=== PATIENT | male | born 1990 | race Caucasian/White ===

== ENCOUNTER 2016-11-11 18:19 | Emergency (ER) | payer MEDICAID, BC ==
[~2016-11-11] VITALS: Ht 185.4 cm; Wt 89.2 kg
[~2016-11-11 18:19] MED LIST: ARIP20 PO; CELE20TA PO; CITA20 PO; DIVA250T PO
[2016-11-11 18:28] VITALS: BP 149/103; PULSE 114; RESP 16; TEMP 99.6; O2SAT 99
[2016-11-11] MEDS ORDERED: DEPA500T3 PO (18:43)
[2016-11-11] MEDS ORDERED: CELE20TA PO (18:43)
--- NOTE | 2016-11-11 18:56 | PD ---
HPI Chief Complaint: Respiratory Symptoms Time Seen by Provider: 18:40 Travel History International Travel<30 days: No Contact w/Intl Traveler<30days: No Traveled to known affect area: No History of Present Illness HPI This 26-year-old male presents with complaint of some shortness of breath. He has quite a severe anxiety disorder. He also has a history of pneumothorax. He thought he was having a anxiety problem but was having trouble breathing and was concerned he might be having a pneumothorax. He is having some mild right- sided pain in the shoulder. His pneumothoraces occurred several years ago. PFSH Past Medical History Hx Anticoagulant Therapy: No Asthma: No Autoimmune Disease: No Blood Disorders: No Bipolar Disorder: Yes Anxiety: Yes Depression: Yes Heart Rhythm Problems: No Cancer: No Cardiovascular Problems: Yes (HTN) Chest Pain: No Congestive Heart Failure: No Cerebrovascular Accident: No Diabetes: No Diminished Hearing: No Endocrine: No Gastrointestinal Disorders: Yes Genitourinary: No Headaches: No Heparin Induced Thrombocytopen: No Hypertension: No Immune Disorder: No Implanted Vascular Access Dvce: No Musculoskeletal: No Neurologic: No Psychiatric: Yes Reproductive: No Respiratory: Yes (two spont pneumothorax in the past) Immunizations Current: No Migraines: No Seizures: No Past Surgical History Abdominal Surgery: No Cardiac Surgery: No Ear Surgery: No Endocrine Surgery: No Eye Surgery: No Genitourinary Surgery: No Gynecologic Surgery: No Neurologic Surgery: No Oral Surgery: Yes (ROOT CANAL) Thoracic Surgery: Yes (SPONT. PNUEMO IN 2007, BILATERAL CHEST TUBES ) Other Surgery: No (10/06 spontaneous pneumo right) Social History Alcohol Use: Yes (STATES HE USED TO DRINK A LOT DOES NOT DRINK NOW) Tobacco Use: Yes (1 PPD) Substance Use: No Allergies-Medications (Allergen,Severity, Reaction): Coded Allergies: No Known Allergies (Verified , 11/11/16) Reported Meds & Prescriptions Reported Meds & Active Scripts Active Reported Celexa (Citalopram Hydrobromide) 20 Mg Tab 20 Mg PO DAILY Depakote ER (Divalproex Sodium) 500 Mg Alexus 500 Mg PO DAILY Review of Systems General / Constitutional: No: Fever, Chills Eyes: No: Diploplia, Blurred Vision HENT: No: Headaches, Vertigo Cardiovascular: No: Chest Pain or Discomfort Respiratory: Positive: Shortness of Breath Gastrointestinal: No: Vomiting, Diarrhea Genitourinary: No: Urgency, Frequency Musculoskeletal: No: Myalgias Psychiatric: Positive: Anxiety, No: Disorder of Thought, Substance Abuse Hematologic/Lymphatic: No: Easy Bruising Physical Exam Narrative GENERAL: Well-developed male SKIN: Focused skin assessment warm/dry. HEAD: Atraumatic. Normocephalic. EYES: Pupils equal and round. No scleral icterus. No injection or drainage. ENT: No nasal bleeding or discharge. Mucous membranes pink and moist. NECK: Trachea midline. No JVD. CARDIOVASCULAR: Regular rate and rhythm. No murmur appreciated. RESPIRATORY: No accessory muscle use. Clear to auscultation. Breath sounds equal bilaterally. GASTROINTESTINAL: Abdomen soft, non-tender, nondistended. Hepatic and splenic margins not palpable. MUSCULOSKELETAL: No obvious deformities. No clubbing. No cyanosis. No edema. NEUROLOGICAL: Awake and alert. No obvious cranial nerve deficits. Motor grossly within normal limits. Normal speech. PSYCHIATRIC: Appropriate mood and affect; insight and judgment normal. Data Data Last Documented VS Vital Signs Date Time Temp Pulse Resp B/P Pulse Ox O2 Delivery O2 Flow Rate FiO2 11/11/16 18:28 99.6 114 16 149/103 99 Orders Chest, Pa & Lat (11/11/16 18:50) [facility] Medical Decision Making Medical Screen Exam Complete: Yes Emergency Medical Condition: Yes Medical Record Reviewed: Yes Differential Diagnosis Differential includes atypical chest pain, pneumothorax, anxiety Narrative Course X-ray of the chest is negative for pneumothorax. Patient has been reevaluated and says his breathing is fine. He had some paresthesias in his right arm which have resolved. He is stable for discharge Diagnosis Primary Impression: Anxiety Disposition: 01 DISCHARGE HOME Condition: Stable William Pike MD November 11, 2016 18:56
[2016-11-11 19:15] VITALS: BP 153/92; PULSE 110; RESP 18; O2SAT 97
--- NOTE | 2016-11-11 19:20 | RADHPO ---
EXAM DATE/TIME: 11/11/2016 19:07 [facility] COMPARISON: CHEST PA & LAT, August 23, 2013, 19:32. INDICATIONS : Short of breath. MEDICAL HISTORY : None. Pneumothorax SURGICAL HISTORY : None. ENCOUNTER: Initial ACUITY: 1 day PAIN SCORE: 5/10 LOCATION: Bilateral chest FINDINGS: PA and lateral views of the chest demonstrate the lungs to be symmetrically aerated without evidence of mass, infiltrate or effusion. The cardiomediastinal contours are unremarkable. Osseous structure s are intact. CONCLUSION: No acute disease. Aram Robledo MD FACR on November 11, 2016 at 19:17 Board Certified Radiologist. This report was verified electronically.
[2016-11-11 20:29] VITALS: BP 140/88
--- NOTE | 2016-11-12 15:29 | EKG ---
Date Performed: 11/11/2016 Time Performed: 18:33:54 PTAGE: 26 years EKG: Sinus tachycardia. Poor R wave progression - probable normal variant Borderline ECG PREVIOUS TRACING : 05/29/2015 01.16 Compared to previous tracing, sinus rate is higher. DOCTOR: Hermelindo Marcum Interpretating Date/Time 11/12/2016 15:28:24
== END 2016-11-11 20:29 | disposition home or self-care (01) ==
LOC: PHED 18:19
DX: F41.9 Anxiety disorder, unspecified (principal); M25.511 Pain in right shoulder; R00.0 Tachycardia, unspecified; F17.200 Nicotine dependence, unspecified, uncomplicated; Z86.59 Personal history of other mental and behavioral disorders; Z87.09 Personal history of other diseases of the respiratory system; Z86.79 Personal history of other diseases of the circulatory system; Z87.19 Personal history of other diseases of the digestive system
CPT/HCPCS: 71020; 93005; 99283

== ENCOUNTER 2017-10-31 07:27 | Inpatient (IN) | payer BC, MEDICAID, OTHER ==
[2017-10-31] VITALS (11 sets, daily range): BP systolic 157–179; BP diastolic 95–122; PULSE 102–135; RESP 16–21; TEMP 97.5–98.8; O2SAT 95–100
[~2017-10-31] VITALS: Ht 188 cm; Wt 86.1 kg
[~2017-10-31 07:27] MED LIST changes: -ARIP20 PO; -CITA20 PO; +DEPA500T3 PO; -DIVA250T PO
[2017-10-31] MEDS ORDERED: SODIUM CHLOR 0.9% 1000 ML INJ 1,000 ML IV ONE ×2 (07:57→12:15)
[2017-10-31] MEDS ORDERED: SODIUM CHLORIDE 0.9% FLUSH 10 ML FLUSH IVF PRN (08:00)
--- NOTE | 2017-10-31 08:12 | PD ---
HPI Chief Complaint: OD/ Ingestion Time Seen by Provider: 07:46 Travel History International Travel<30 days: No Contact w/Intl Traveler<30days: No Traveled to known affect area: No History of Present Illness HPI The patient is a 27-year-old male who presents to the emergency department with his parents after an overdose. The father found the patient on the foyer earlier today, appeared to have slipped out of the chair. They noted the patient appeared to have overdosed on medications. They did find several medications that the patient possibly took including a whole bottle of Benadryl , several Klonopin, and possibly up to 85 pseudoephedrine 30 mg tablets. They state that the patient had slurred speech, was slightly drowsy. The patient does have a history of severe anxiety and depression, was scheduled to go to a treatment center earlier today. Upon arrival the patient is unable to tell me if the overdose was intentional or if there is any suicidal ideation. He does have a history of psychiatric disorders. The family states the patient has been doing well lately, has been more interactive, and was scheduled to undergo placement later today. They did call the facility in [place], [place], who stated the take the patient to the emergency department for possible medical clearance of the possible transfer to their facility later today. The family denies any alcohol use or illicit drug use. The patient denies any physical complaints, however, is a somewhat limited historian. PFSH Past Medical History Hx Anticoagulant Therapy: No Asthma: No Autoimmune Disease: No Blood Disorders: No Bipolar Disorder: Yes Anxiety: Yes Depression: Yes Heart Rhythm Problems: No Cancer: No Cardiovascular Problems: Yes (HTN) Chest Pain: No Congestive Heart Failure: No Cerebrovascular Accident: No Diabetes: No Diminished Hearing: No Endocrine: No Gastrointestinal Disorders: Yes Genitourinary: No Headaches: No Heparin Induced Thrombocytopen: No Hypertension: No Immune Disorder: No Implanted Vascular Access Dvce: No Musculoskeletal: No Neurologic: No Psychiatric: Yes Reproductive: No Respiratory: Yes (two spont pneumothorax in the past) Immunizations Current: No Migraines: No Seizures: No Past Surgical History Abdominal Surgery: No Cardiac Surgery: No Ear Surgery: No Endocrine Surgery: No Eye Surgery: No Genitourinary Surgery: No Gynecologic Surgery: No Neurologic Surgery: No Oral Surgery: Yes (ROOT CANAL) Thoracic Surgery: Yes (SPONT. PNUEMO IN 2007, BILATERAL CHEST TUBES ) Social History Alcohol Use: Yes (STATES HE USED TO DRINK A LOT DOES NOT DRINK NOW) Tobacco Use: Yes (1 PPD) Substance Use: No Allergies-Medications (Allergen,Severity, Reaction): Coded Allergies: No Known Allergies (Verified , 11/11/16) Reported Meds & Prescriptions Reported Meds & Active Scripts Active Reported Clonazepam 0.5 Mg Tab 0.5 Mg PO BID Temazepam 15 Mg Cap 15 Mg PO HS PRN Quetiapine (Quetiapine Fumarate) 25 Mg Tab 25 Mg PO HS Celexa (Citalopram Hydrobromide) 20 Mg Tab 20 Mg PO DAILY Depakote ER (Divalproex Sodium) 500 Mg Alexus 500 Mg PO DAILY Review of Systems ROS Limitations: Altered Mental Status, Poor Historian Except as stated in HPI: all other systems reviewed are Neg Psychiatric: Positive: Anxiety, Depression Physical Exam Narrative GENERAL: Awake, lethargic, 27-year-old male appears his stated age. SKIN: Focused skin assessment warm/dry. HEAD: Atraumatic. Normocephalic. EYES: Pupils equal and round. 3 mm bilateral and reactive. EOMs are intact. ENT: No nasal bleeding or discharge. Dry mucous membranes. NECK: Trachea midline. No JVD. CARDIOVASCULAR: Regular, tachycardic with a heart rate in the 130s. RESPIRATORY: No accessory muscle use. Clear to auscultation. Breath sounds equal bilaterally. GASTROINTESTINAL: Abdomen soft, non-tender, nondistended. No rebound tenderness. Back: No CVA tenderness. MUSCULOSKELETAL: No obvious deformities. No clubbing. No cyanosis. No edema. NEUROLOGICAL: Awake, lethargic. Slurred speech. Follows simple commands. Psychiatric: Unable to obtain. Data Data Last Documented VS Vital Signs Date Time Temp Pulse Resp B/P (MAP) Pulse Ox O2 Delivery O2 Flow Rate FiO2 10/31/17 08:00 135 20 100 Room Air 10/31/17 07:32 97.5 Orders Orders Electrocardiogram (10/31/17 07:57) Complete Blood Count With Diff (10/31/17 07:57) Comprehensive Metabolic Panel (10/31/17 07:57) Prothrombin Time / Inr (Pt) (10/31/17 07:57) Act Partial Throm Time (Ptt) (10/31/17 07:57) Urinalysis - C+S If Indicated (10/31/17 07:57) Chest, Single Ap (10/31/17 07:57) Iv Access Insert/Monitor (10/31/17 07:57) Ecg Monitoring (10/31/17 07:57) Oximetry (10/31/17 07:57) Sodium Chloride 0.9% Flush (Ns Flush) (10/31/17 08:00) Sodium Chlor 0.9% 1000 Ml Inj (Ns 1000 M (10/31/17 07:57) Call Poison Control (10/31/17 07:57) Drug Screen, Random Urine (10/31/17 07:57) Alcohol (Ethanol) (10/31/17 07:57) Salicylates (Aspirin) (10/31/17 07:57) Tylenol (Acetaminophen) (10/31/17 07:57) Labs Laboratory Tests Test 10/31/17 08:05 White Blood Count 10.1 TH/MM3 Red Blood Count 5.09 MIL/MM3 Hemoglobin 16.7 GM/DL Hematocrit 48.3 % Mean Corpuscular Volume 94.8 FL Mean Corpuscular Hemoglobin 32.8 PG Mean Corpuscular Hemoglobin Concent 34.7 % Red Cell Distribution Width 13.4 % Platelet Count 206 TH/MM3 Mean Platelet Volume 8.6 FL Neutrophils (%) (Auto) 75.5 % Lymphocytes (%) (Auto) 18.6 % Monocytes (%) (Auto) 5.3 % Eosinophils (%) (Auto) 0.3 % Basophils (%) (Auto) 0.3 % Neutrophils # (Auto) 7.6 TH/MM3 Lymphocytes # (Auto) 1.9 TH/MM3 Monocytes # (Auto) 0.5 TH/MM3 Eosinophils # (Auto) 0.0 TH/MM3 Basophils # (Auto) 0.0 TH/MM3 CBC Comment DIFF FINAL Differential Comment Prothrombin Time 10.7 SEC Prothromb Time International Ratio 1.1 RATIO Activated Partial Thromboplast Time 28.9 SEC Blood Urea Nitrogen 5 MG/DL Creatinine 1.05 MG/DL Random Glucose 95 MG/DL Total Protein 8.3 GM/DL Albumin 4.5 GM/DL Calcium Level 9.6 MG/DL Alkaline Phosphatase 68 U/L Aspartate Amino Transf (AST/SGOT) 71 U/L Alanine Aminotransferase (ALT/SGPT) 31 U/L Total Bilirubin 0.3 MG/DL Sodium Level 141 MEQ/L Potassium Level 3.9 MEQ/L Chloride Level 106 MEQ/L Carbon Dioxide Level 27.6 MEQ/L Anion Gap 7 MEQ/L Estimat Glomerular Filtration Rate 85 ML/MIN Salicylates Level 4.0 MG/DL Acetaminophen Level LESS THAN 2.0 MCG/ML Ethyl Alcohol Level LESS THAN 3 MG/DL MDM Medical Decision Making Medical Screen Exam Complete: Yes Emergency Medical Condition: Yes Medical Record Reviewed: Yes Interpretation(s) EKG reveals sinus tachycardia with a heart rate of 131. Last Impressions Chest X-Ray 10/31/17 0757 Signed Impressions: Service Date/Time: October 08:24 - CONCLUSION: No acute cardiopulmonary abnormality is identified. Chong Browne MD Laboratory Tests Test 10/31/17 08:05 White Blood Count 10.1 TH/MM3 Red Blood Count 5.09 MIL/MM3 Hemoglobin 16.7 GM/DL Hematocrit 48.3 % Mean Corpuscular Volume 94.8 FL Mean Corpuscular Hemoglobin 32.8 PG Mean Corpuscular Hemoglobin Concent 34.7 % Red Cell Distribution Width 13.4 % Platelet Count 206 TH/MM3 Mean Platelet Volume 8.6 FL Neutrophils (%) (Auto) 75.5 % Lymphocytes (%) (Auto) 18.6 % Monocytes (%) (Auto) 5.3 % Eosinophils (%) (Auto) 0.3 % Basophils (%) (Auto) 0.3 % Neutrophils # (Auto) 7.6 TH/MM3 Lymphocytes # (Auto) 1.9 TH/MM3 Monocytes # (Auto) 0.5 TH/MM3 Eosinophils # (Auto) 0.0 TH/MM3 Basophils # (Auto) 0.0 TH/MM3 CBC Comment DIFF FINAL Differential Comment Prothrombin Time 10.7 SEC Prothromb Time International Ratio 1.1 RATIO Activated Partial Thromboplast Time 28.9 SEC Blood Urea Nitrogen 5 MG/DL Creatinine 1.05 MG/DL Random Glucose 95 MG/DL Total Protein 8.3 GM/DL Albumin 4.5 GM/DL Calcium Level 9.6 MG/DL Alkaline Phosphatase 68 U/L Aspartate Amino Transf (AST/SGOT) 71 U/L Alanine Aminotransferase (ALT/SGPT) 31 U/L Total Bilirubin 0.3 MG/DL Sodium Level 141 MEQ/L Potassium Level 3.9 MEQ/L Chloride Level 106 MEQ/L Carbon Dioxide Level 27.6 MEQ/L Anion Gap 7 MEQ/L Estimat Glomerular Filtration Rate 85 ML/MIN Salicylates Level 4.0 MG/DL Acetaminophen Level LESS THAN 2.0 MCG/ML Ethyl Alcohol Level LESS THAN 3 MG/DL Differential Diagnosis Differential diagnosis includes intentional drug overdose, accidental drug overdose, sympathomimetic crisis, anticholinergic overdose, dehydration, arrhythmia, electrolyte abnormality. Narrative Course IV was established, labs are drawn and sent, and the patient was placed on cardiac telemetry monitoring and continuous pulse oximetry monitoring. EKG was ordered and interpreted. Acetaminophen level, salicylate level, alcohol level, drug level screen were sent to lab. Poison control was contacted. The patient was administered 1 L of IV fluids. The patient's salicylate level and acetaminophen levels are unremarkable. Electrolytes are unremarkable. The patient was reevaluated at 9:30 AM, still somewhat lethargic, still slurring words, and is still tachycardic with a heart rate of 07/15/2000 20. The patient was placed under a Robbins act. The patient will need observation in the intensive care unit when medically cleared evaluation by psychiatry. The on- call explosive specialist was paged for admission. Physician Communication Physician Communication The on-call explosive specialist was paged for admission. Diagnosis Primary Impression: Drug overdose, intentional Qualified Codes: T50.902A - Poisoning by unspecified drugs, medicaments and biological substances, intentional self-harm, initial encounter Condition: Stable Tony Sierra MD October 31, 2017 08:12
[2017-10-31 08:15] LABS: AUTOMATED NEUTROPHIL # 7.6 TH/MM3 (1.8-7.7); BASOPHIL % 0.3 % (0.0-2.0); EOSINOPHIL % 0.3 % (0.0-4.0); HEMATOCRIT 48.3 % (39.0-51.0); HEMOGLOBIN 16.7 GM/DL (13.0-17.0); LYMPH % 18.6 % (9.0-44.0); LYMPHOCYTE # 1.9 TH/MM3 (1.0-4.8); MEAN CELL VOLUME 94.8 FL (80.0-100.0); MEAN CORPUSCULAR HEMOGLOBIN 32.8 PG (27.0-34.0); MEAN CORPUSCULAR HGB CONC 34.7 % (32.0-36.0); MEAN PLATELET VOLUME 8.6 FL (7.0-11.0); MONO % 5.3 % (0.0-8.0); MONOCYTE # 0.5 TH/MM3 (0-0.9); NEUT % 75.5 % (16.0-70.0); PLATELET COUNT 206 TH/MM3 (150-450); RED BLOOD COUNT 5.09 MIL/MM3 (4.50-5.90); RED CELL DISTRIBUTION WIDTH 13.4 % (11.6-17.2); WHITE BLOOD COUNT 10.1 TH/MM3 (4.0-11.0)
[2017-10-31 08:24] LABS: INTERNATIONAL NORMALIZED RATIO 1.1 RATIO; PROTHROMBIN TIME - PATIENT 10.7 SEC (9.8-11.6)
--- NOTE | 2017-10-31 08:56 | RADRPT ---
EXAM DATE/TIME: 10/31/2017 08:24 [facility] COMPARISON: CHEST SINGLE AP, May 29, 2015, 1:16. INDICATIONS : Unresponsive, evaluate lung status, possible overdose. MEDICAL HISTORY : None. SURGICAL HISTORY : None. ENCOUNTER: Initial ACUITY: 1 day PAIN SCORE: Non-responsive. LOCATION: Bilateral chest FINDINGS: Portable AP view of the chest demonstrates a normal-sized cardiac silhouette. No effusion, consolidat ion, or pneumothorax is visualized. The bones and soft tissues demonstrate no acute abnormality. EKG lines overlie the patient. CONCLUSION: No acute cardiopulmonary abnormality is identified. Chong Browne MD on October 31, 2017 at 8:43 Board Certified Radiologist. This report was verified electronically.
[2017-10-31 09:00] LABS: ALBUMIN 4.5 GM/DL (3.4-5.0); ALKALINE PHOSPHATASE 68 U/L (45-117); ALT (GPT) 31 U/L (12-78); AST (GOT) 71 U/L (15-37); BICARBONATE 27.6 MEQ/L (21.0-32.0); BLOOD UREA NITROGEN 5 MG/DL (7-18); CALCIUM 9.6 MG/DL (8.5-10.1); CHLORIDE 106 MEQ/L (98-107); CREATININE 1.05 MG/DL (0.60-1.30); GLOMERULAR FILTRATION RATE 85 ML/MIN (>89); GLUCOSE,RANDOM 95 MG/DL (74-106); SODIUM (NA) 141 MEQ/L (136-145); TOTAL BILIRUBIN ADULT 0.3 MG/DL (0.2-1.0); TOTAL PROTEIN 8.3 GM/DL (6.4-8.2)
[2017-10-31 09:01] LABS: ACETAMINOPHEN LESS THAN 2.0 MCG/ML (10.0-30.0)
[2017-10-31] MEDS ORDERED: CLON0.5T PO (09:13)
[2017-10-31] MEDS ORDERED: TEMA15CA PO (09:13)
[2017-10-31] MEDS ORDERED: QUET1TAB7 PO (09:13)
[2017-10-31] MEDS ORDERED: RESP: ALBUTEROL 2.5 MG/IPRATROPIUM 0.5 MG NEB (PRN) INH (10:45)
[2017-10-31] MEDS ORDERED: SENNOSIDES 8.6 MG TAB PO PRN (10:45)
[2017-10-31] MEDS ORDERED: CHLORHEXIDINE GLUCONATE 2 % 1 PACK (2 CLOTHS) TOP PRN (10:45)
[2017-10-31] MEDS ORDERED: LACTULOSE SYRUP 20 GM/30 ML CUP PO PRN (10:45)
[2017-10-31] MEDS ORDERED: BISACODYL 10 MG SUPP RECTAL PRN (10:45)
[2017-10-31] MEDS ORDERED: NURSING INFORMATION XX SCH (10:45)
[2017-10-31] MEDS ORDERED: MAGNESIUM HYDROXIDE SUSP 30 ML CUP PO PRN (10:45)
[2017-10-31] MEDS ORDERED: DILTIAZEM HCL 30 MG TAB PO SCH (12:15)
--- NOTE | 2017-10-31 12:50 | MH ---
cc: Suyapa Velázquez MD DATE OF ADMISSION: 10/31/2017 DATE OF : 1990 HISTORY OF PRESENT ILLNESS: The patient is a 27-year-old male with a history of psychiatric disorders including bipolar disorder, anxiety and depression, who presented to [facility] ED with his parents after an overdose. Most of the history was obtained from reviewing the medical records as the patient is a poor historian. Apparently, the patient's father found him on the floor earlier today, appeared to have slipped out of the chair. They found several medications that the patient possibly took including a whole bottle of Benadryl, several Klonopin and possibly up to 85 pseudoephedrine 30 mg tablets. Patient had slurred speech and was slightly drowsy. He was scheduled to undergo drug rehab facility placement in [place], [place]. According to the parents, he had 3 similar episodes in the past. The family denies any history of alcohol use or illicit drug use. On arrival to the ED, he was tachycardic with heart rate of 130s and hypertensive with systolic blood pressure 160s to 170s. Chest x-ray showed no evidence of any acute cardiopulmonary disease. PAST MEDICAL HISTORY: Significant for bipolar disorder, anxiety disorder, depression, history of spontaneous pneumothorax greater than 5 years ago. PAST SURGICAL HISTORY: Previous chest tube placements. SOCIAL HISTORY: Nondrinker. Smoker. No history of illicit drug use. ALLERGIES: NO KNOWN DRUG ALLERGIES REPORTED. MEDICATIONS: 1. Clonazepam. 2. Celexa. 3. Depakote. 4. Temazepam. FAMILY HISTORY: Noncontributing to present illness. REVIEW OF SYSTEMS: Review of systems limited as the patient is a poor historian. PHYSICAL EXAMINATION: GENERAL: A 27-year-old male lying in bed on room air oxygen in no acute distress. VITAL SIGNS: Afebrile with temperature 97.5, pulse of 107, respiratory rate of 18, blood pressure 179/95, saturation 95%. HEENT: Atraumatic, normocephalic. Pupils are equal, round, reactive to light and accommodation. Extraocular muscles intact. Conjunctivae pink, nonicteric sclerae. Oral mucosa within normal limits. NECK: Supple. No JVD, adenopathy or thyromegaly. Trachea in the midline. CARDIOVASCULAR EXAM: Tachycardic. Normal S1, S2. No murmurs, rubs or gallops noted. PULMONARY EXAM: Bilateral equal air entry. No rales or wheezing. ABDOMEN: Soft, nontender. No distention. Positive bowel sounds. EXTREMITIES: No cyanosis, clubbing or edema. NEUROLOGIC: No focal sensory deficit. LABORATORY DATA: Sodium 141, potassium 3.9, chloride 106, CO2 27, BUN 5, creatinine 1.0, glucose 95. AST 71, ALT 31, alkaline phosphatase 68. WBC 10.1, hemoglobin 16, hematocrit 48, platelet count 206. Tylenol level less than 2. Alcohol level less than 3. INR 1.1, PT 10.7, PTT 28.9. Chest X-ray: No acute disease. EKG: Sinus tachycardia. IMPRESSION: 1. Polysubstance abuse on pseudoephedrine, Klonopin and Benadryl. 2. History of bipolar disorder. 3. History of anxiety and depression. 4. Hypertension. RECOMMENDATIONS: 1. Monitor neuro status closely and avoid any sedatives. 2. We will consult Psychiatry Service and we will obtain a urine drug screen. 3. Oxygen p.r.n. to maintain sats above 92%. 4. Bronchodilators on a p.r.n. basis. 5. Monitor heart rate and blood pressure closely and maintain MAP greater than 65 mmHg. 6. He was given 1 liter of NS in the ED. We will give an additional 1 liter bolus followed by D5NS at 80-84 mL an hour. 7. Cardizem 60 mg q. 6 for heart rate and blood pressure control. 8. Monitor renal function, I's and O's and electrolyte replacement per protocol. IV fluids as stated above. 9. Speech therapy evaluation. Diet per Speech. 10. Monitor for signs of infection which include fever and WBC. Barahona-culture if spikes a fever. A chest x-ray in the ED showed no acute cardiopulmonary disease. 11. Sliding scale insulin if needed for glycemic control. 12. No indications for GI prophylaxis. 13. Deep venous thrombosis prophylaxis with SCDs and heparin subq. Addendum 1756: No active issues appears hemodynamically stable. WIll sign off and transfer care to [facility] MD DEJAH Jolly/KATHRYN , 12:23 PM , 12:49 PM GLADIS
--- NOTE | 2017-10-31 14:02 | PD.PSY.CON ---
Provisional Diagnosis Admission Date October 31, 2017 at 10:37 Thornton I. Bipolar disorder, most recent episode depressed, anxiety Thornton II. Deferred Thornton III. Anticholinergic delirium History of Present Illness Service Psychiatry Consult Requested By ER Reason for Consult Overdose Primary Care Physician No Primary Care Physician HPI The patient is a 27-year-old man, single, domiciled with parents in [place], unemployed, supported by [facility], with psychiatric history of bipolar disorder, polysubstance abuse, for previous psychiatric hospitalization, last hospitalization was 2 years ago in in [place], previous suicide attempts by overdosing, established outpatient care with Dr. Chavez, patient Seroquel 25 mg, citalopram 10 mg, Depakote 500 mg twice daily, temazepam 15 mg, no significant medical history, who presents to the emergency department with his parents after an overdose. The father found the patient on the foyer earlier today, appeared to have slipped out of the chair. They noted the patient appeared to have overdosed on medications. They did find several medications that the patient possibly took including a whole bottle of Benadryl, several Klonopin, and possibly up to 85 pseudoephedrine 30 mg tablets. They state that the patient had slurred speech, was slightly drowsy. The patient does have a history of severe anxiety and depression, was scheduled to go to a treatment center earlier today. Upon arrival the patient is unable to tell me if the overdose was intentional or if there is any suicidal ideation. Patient was consulted to psychiatry to address overdose. EMR was reviewed. Case discussed with Dr. Sierra. His mother Charo Wolfe was uses a collateral information. On psychiatric evaluation the patient is poorly cooperative, with a prominent incoherent and slurred speech, disorganized, very disoriented, unable to provide any meaningful information for the psychiatric assessment. He seems to be having active visual hallucinations and is internally preoccupied . his mother reports that she is not very clear if the patient overdose with suicidal intentions or with intentions to get high. She says that in the past he used to abuse amphetamines alcohol and marijuana, but he has been clean for about 1 year. He was not showing any symptoms of depression lately, no changes in mentation that could raise a suspicion on an overdose. The mother reports that suicidal attempt is highly probable since the patient has done this in the past. She says that the patient has been secluded, no going out of the house, with a lot of anxiety and probable depression for about a year now. He has been quite stable with current psychotropic regimen. She wishes that if patient is going to be admitted in psychiatry the patient is transferred to [facility] in [place]. Review of Systems Constitutional: DENIES: Diaphoretic episodes, Fatigue, Fever, Weight gain, Weight loss, Chills, Dizziness, Change in appetite, Night Sweats Endocrine: DENIES: Heat/cold intolerance, Polydipsia, Polyuria, Polyphagia Eyes: DENIES: Blurred vision, Diplopia, Eye inflammation, Eye pain, Vision loss , Photosensitivity, Double Vision Ears, nose, mouth, throat: DENIES: Tinnitus, Hearing loss, Vertigo, Nasal discharge, Oral lesions, Throat pain, Hoarseness, Ear Pain, Running Nose, Epistaxis, Sinus Pain, Toothache, Odynophagia Respiratory: DENIES: Apneas, Cough, Snoring, Wheezing, Hemoptysis, Sputum production, Shortness of breath Cardiovascular: DENIES: Chest pain, Palpitations, Syncope, Dyspnea on Exertion , PND, Lower Extremity Edema, Orthopnea, Claudication Gastrointestinal: DENIES: Abdominal pain, Black stools, Bloody stools, Constipation, Diarrhea, Nausea, Vomiting, Difficulty Swallowing, Anorexia Genitourinary: DENIES: Sexual dysfunction, Urinary frequency, Urinary incontinence, Urgency, Hematuria, Dysuria, Nocturia, Penile Discharge, Testicular Pain, Testicular Swelling Musculoskeletal: DENIES: Joint pain, Muscle aches, Stiffness, Joint Swelling, Back pain, Neck pain Integumentary: DENIES: Abnormal pigmentation, Nail changes, Pruritus, Rash Hematologic/lymphatic: DENIES: Bruising, Lymphadenopathy Immunologic/allergic: DENIES: Eczema, Urticaria Neurologic: DENIES: Abnormal gait, Headache, Localized weakness, Paresthesias, Seizures, Speech Problems, Tremor, Poor Balance Psychiatric: COMPLAINS OF: Anxiety, Confusion, Suicidal Ideation, DENIES: Mood changes, Depression, Hallucinations, Agitation, Homicidal Ideation, Delusions Past Family Social History Coded Allergies: No Known Allergies (Verified Allergy, Unknown, 10/31/17) Reported Medications Clonazepam (Clonazepam) 0.5 Mg Tab, 0.5 MG PO BID, TAB 0 Refills 10/31/17 Temazepam (Temazepam) 15 Mg Cap, 15 MG PO HS Y for INSOMNIA, CAP 0 Refills 10/31/17 Quetiapine (Quetiapine) 25 Mg Tab, 25 MG PO HS, TAB 0 Refills 10/31/17 Citalopram (Celexa) 20 Mg Tab, 20 MG PO DAILY for Control Depression, #30 TAB 0 Refills 11/11/16 Divalproex ER (Depakote ER) 500 Mg Alexus, 500 MG PO DAILY for Control Seizures, #30 TAB 0 Refills 11/11/16 Current Medications Medications (Trade) Dose Ordered Sig/Eliu Route Start Time Stop Time Status Last Admin (NS Flush) 2 ml UNSCH PRN IVF 10/31/17 08:00 (Pepcid Inj) 20 mg Q12HR IV PUSH 10/31/17 21:00 (Pepcid) 20 mg Q12HR PO 10/31/17 21:00 (Duoneb Neb) 1 ampule Q4HR NEB PRN INH 10/31/17 10:45 ([facility]) 1 [id number] XX 10/31/17 10:45 (Chlorhexidine 2% Cloth) 3 pack Taper DAILY@04 TOP 11/01/17 04:00 10/28/18 03:59 (Chlorhexidine 2% Cloth) 3 pack UNSCH PRN TOP 10/31/17 10:45 (Tamica-Colace) 1 tab BID PO 10/31/17 21:00 (Milk Of Magnesia Liq) 30 ml Q12H PRN PO 10/31/17 10:45 (Senokot) 17.2 mg Q12H PRN PO 10/31/17 10:45 (Dulcolax Supp) 10 mg DAILY PRN RECTAL 10/31/17 10:45 (Lactulose Liq) 30 ml DAILY PRN PO 10/31/17 10:45 Dextrose/Sodium Chloride 1,000 ml @ 84 mls/hr [id number] IV 10/31/17 10:45 (Heparin Inj) 5,000 units Q12HR SQ 10/31/17 21:00 (Cardizem) 30 mg Q6HR PO 10/31/17 12:15 Family Psych History His father is bipolar, grandmother bipolar Social History Patient was born and raised in [place], he lives in [place] with his parents, unemployed, single, supported by SSI, his highest level of education is 1 year of college Patient's Strengths (min. 2) Family support, outpatient psychiatric Physical Exam No tremors, no EPS, no psychomotor agitation or retardation, no stiffness Vital Signs Vital Signs Date Time Temp Pulse Resp B/P (MAP) Pulse Ox O2 Delivery O2 Flow Rate FiO2 10/31/17 13:38 10/31/17 11:28 107 18 95 Room Air 10/31/17 07:32 97.5 Lab Results Test 10/31/17 08:05 White Blood Count 10.1 TH/MM3 Red Blood Count 5.09 MIL/MM3 Hemoglobin 16.7 GM/DL Hematocrit 48.3 % Mean Corpuscular Volume 94.8 FL Mean Corpuscular Hemoglobin 32.8 PG Mean Corpuscular Hemoglobin Concent 34.7 % Red Cell Distribution Width 13.4 % Platelet Count 206 TH/MM3 Mean Platelet Volume 8.6 FL Neutrophils (%) (Auto) 75.5 % Lymphocytes (%) (Auto) 18.6 % Monocytes (%) (Auto) 5.3 % Eosinophils (%) (Auto) 0.3 % Basophils (%) (Auto) 0.3 % Neutrophils # (Auto) 7.6 TH/MM3 Lymphocytes # (Auto) 1.9 TH/MM3 Monocytes # (Auto) 0.5 TH/MM3 Eosinophils # (Auto) 0.0 TH/MM3 Basophils # (Auto) 0.0 TH/MM3 CBC Comment DIFF FINAL Differential Comment Prothrombin Time 10.7 SEC Prothromb Time International Ratio 1.1 RATIO Activated Partial Thromboplast Time 28.9 SEC Blood Urea Nitrogen 5 MG/DL Creatinine 1.05 MG/DL Random Glucose 95 MG/DL Total Protein 8.3 GM/DL Albumin 4.5 GM/DL Calcium Level 9.6 MG/DL Alkaline Phosphatase 68 U/L Aspartate Amino Transf (AST/SGOT) 71 U/L Alanine Aminotransferase (ALT/SGPT) 31 U/L Total Bilirubin 0.3 MG/DL Sodium Level 141 MEQ/L Potassium Level 3.9 MEQ/L Chloride Level 106 MEQ/L Carbon Dioxide Level 27.6 MEQ/L Anion Gap 7 MEQ/L Estimat Glomerular Filtration Rate 85 ML/MIN Salicylates Level 4.0 MG/DL Acetaminophen Level LESS THAN 2.0 MCG/ML Ethyl Alcohol Level LESS THAN 3 MG/DL Mental Status Examination Appearance: Appropriate, Disheveled Consciousness: Obtunded, Clouded Orientation: Person Motor Activity: Abnormal gait Speech: Incoherent Language: Perseveration Fund of Knowledge: Inadequate Memory: Impaired Mood: Irritable Affect: Irritable Thought Process & Associations: Loose associations Thought Content: Bizarre thinking Hallucination Type: None Suicidal Ideation: No Suicidal Plan: No Suicidal Intention: No Homicidal Ideation: No Homicidal Plan: No Homicidal Intention: No Insight: Poor Judgment: Poor Assessment & Plan Problem List: (1) Bipolar disorder ICD Codes: F31.9 - Bipolar disorder Status: Acute Assessment & Plan: At the moment of my psychiatric evaluation today the patient is quite confused, disorganized, completely disoriented, with incoherent speech after overdosing with multiple pills of Benadryl. Patient seems to be AMS due to anticholinergic delirium. There is a patient with an extensive history of bipolar disorder, substance dependence, poor impulse control, previous suicide attempt, he is engaged in outpatient care and is receiving psychotropics, but at this moment is quite unclear if recent overdose was with suicidal intentions. But, is very clear that the patient has an elevated risk of danger to self and is to be admitted in psychiatry for stabilization and safety. Hold psychotropics to the moment. Once patient is hemodynamically stable and out of danger, psychotropics can be restarted. loft worker intervention to present the patient to [facility] in [place] once patient is medically cleared to continue psychiatric treatment , as per mother wish. Patient must remain with a sitter in the medical floor. I will follow-up. Assessment & Plan Estimated LOS: Paramjit Ferrara MD October 31, 2017 14:02
[2017-10-31] MEDS: DEXT 5%-NACL 0.9% 1000 ML INJ 1,000 ML IV SCH ×2 (14:05→20:02)
[2017-10-31 14:51] LABS: BILIRUBIN, URINE NEG (NEG); BLOOD, URINE NEG (NEG); GLUCOSE,URINE NEG (NEG); KETONE, URINE NEG (NEG); MUCUS URINE FEW /lpf (OCC); NITRITE,URINE NEG (NEG); URINE COLOR YELLOW (YELLW/STRAW); URINE LEUKOCYTE ESTERASE NEG (NEG)
--- NOTE | 2017-10-31 15:39 | EKG ---
Date Performed: 10/31/2017 Time Performed: 07:56:55 PTAGE: 27 years EKG: SINUS TACHYCARDIA POSSIBLE INFERIOR MYOCARDIAL INFARCTION ABNORMAL RHYTHM ECG PREVIOUS TRACING : 11/11/2016 18.33 Possible right atrial enlargment. Since the prior tracing, there has been a worsening of the sinus tachycardia associated with possible right atrial enlargment. Findings are nonspecific, but causes of acute right atrial strain including pulmonary embolus should be excluded clinically. DOCTOR: Trisha Jimenez Interpretating Date/Time 10/31/2017 15:37:07
[2017-10-31] MEDS: DILTIAZEM HCL 30 MG TAB PO SCH ×2 (16:48→23:23)
[2017-10-31] MEDS: hydrALAZINE HCL 20 MG/ML VIAL IV PUSH PRN (16:49)
[2017-10-31] MEDS: FAMOTIDINE 20 MG/2 ML VIAL IV PUSH SCH (19:44)
[2017-10-31] MEDS: HEPARIN SODIUM - SQ 10,000 UNITS/ML VIAL SQ SCH (20:02)
[2017-10-31] MEDS: FAMOTIDINE 20 MG TAB PO SCH (20:02)
[2017-10-31] MEDS: DOCUSATE SODIUM 50 MG/SENNA 8.6 MG TAB PO SCH (20:02)
[2017-10-31] MEDS: CHLORHEXIDINE GLUCONATE 2 % 1 PACK (2 CLOTHS) TOP SCH (20:03)
[2017-11-01] VITALS (12 sets, daily range): BP systolic 135–170; BP diastolic 70–88; PULSE 68–114; RESP 8–23; TEMP 98.6–99.3; O2SAT 94–98
[2017-11-01] MEDS: DEXT 5%-NACL 0.9% 1000 ML INJ 1,000 ML IV SCH ×2 (01:30→13:04)
[2017-11-01] MEDS: hydrALAZINE HCL 20 MG/ML VIAL IV PUSH PRN (01:43)
[2017-11-01 04:01] LABS: AUTOMATED NEUTROPHIL # 6.4 TH/MM3 (1.8-7.7); BASOPHIL % 0.2 % (0.0-2.0); EOSINOPHIL # 0.2 TH/MM3 (0-0.4); EOSINOPHIL % 1.6 % (0.0-4.0); HEMOGLOBIN 14.7 GM/DL (13.0-17.0); LYMPH % 29.8 % (9.0-44.0); LYMPHOCYTE # 3.3 TH/MM3 (1.0-4.8); MEAN CELL VOLUME 96.2 FL (80.0-100.0); MEAN CORPUSCULAR HEMOGLOBIN 32.8 PG (27.0-34.0); MEAN CORPUSCULAR HGB CONC 34.1 % (32.0-36.0); MEAN PLATELET VOLUME 8.8 FL (7.0-11.0); MONO % 10.3 % (0.0-8.0); MONOCYTE # 1.1 TH/MM3 (0-0.9); NEUT % 58.1 % (16.0-70.0); PLATELET COUNT 171 TH/MM3 (150-450); RED BLOOD COUNT 4.47 MIL/MM3 (4.50-5.90); RED CELL DISTRIBUTION WIDTH 13.3 % (11.6-17.2)
[2017-11-01 04:28] LABS: ALBUMIN 3.6 GM/DL (3.4-5.0); ALKALINE PHOSPHATASE 52 U/L (45-117); ALT (GPT) 23 U/L (12-78); AST (GOT) 43 U/L (15-37); BICARBONATE 25.6 MEQ/L (21.0-32.0); BLOOD UREA NITROGEN 5 MG/DL (7-18); CALCIUM 8.8 MG/DL (8.5-10.1); CHLORIDE 109 MEQ/L (98-107); CREATININE 0.83 MG/DL (0.60-1.30); GLOMERULAR FILTRATION RATE 112 ML/MIN (>89); GLUCOSE,RANDOM 87 MG/DL (74-106); MAGNESIUM 1.8 MG/DL (1.5-2.5); PHOSPHORUS 4.7 MG/DL (2.5-4.9); SODIUM (NA) 145 MEQ/L (136-145); TOTAL BILIRUBIN ADULT 0.3 MG/DL (0.2-1.0); TOTAL PROTEIN 6.5 GM/DL (6.4-8.2)
[2017-11-01] MEDS: DILTIAZEM HCL 30 MG TAB PO SCH ×4 (05:11→23:39)
[2017-11-01] MEDS: FAMOTIDINE 20 MG/2 ML VIAL IV PUSH SCH ×2 (08:33→20:08)
[2017-11-01] MEDS: DOCUSATE SODIUM 50 MG/SENNA 8.6 MG TAB PO SCH ×2 (08:33→20:07)
[2017-11-01] MEDS: FAMOTIDINE 20 MG TAB PO SCH ×2 (08:34→20:07)
[2017-11-01] MEDS: HEPARIN SODIUM - SQ 10,000 UNITS/ML VIAL SQ SCH ×2 (08:34→20:08)
--- NOTE | 2017-11-01 15:17 | HHI.PR ---
Subjective Remarks Patient seen this morning. Says that pain is under control. Denies any chest pain or shortness of breath. Objective Vital Signs Date Time Temp Pulse Resp B/P (MAP) Pulse Ox O2 Delivery O2 Flow Rate FiO2 11/01/17 14:00 103 11/01/17 12:00 102 11/01/17 12:00 98.8 102 23 138/88 (105) 97 11/01/17 10:00 105 11/01/17 08:00 99 11/01/17 08:00 99.0 99 11 135/76 (95) 98 11/01/17 06:00 105 11/01/17 04:00 103 11/01/17 04:00 99.1 104 19 142/70 (94) 97 11/01/17 02:00 114 11/01/17 00:00 98.6 98 8 170/86 (114) 98 11/01/17 00:00 97 10/31/17 22:00 102 10/31/17 20:00 97.9 121 20 165/101 (122) 98 10/31/17 20:00 121 10/31/17 18:00 107 10/31/17 18:00 104 21 161/98 (119) 99 10/31/17 17:00 108 20 164/115 (131) 100 10/31/17 16:00 106 10/31/17 16:00 98.8 106 20 158/105 (122) 99 I/O 10/31/17 10/31/17 10/31/17 11/01/17 11/01/17 11/01/17 07:00 15:00 23:00 07:00 15:00 23:00 Intake Total 1480 ml 240 ml Output Total 250 ml 900 ml Balance 1230 ml -660 ml Intake Oral 480 ml 240 ml IV Total 1000 ml Output Urine Total 250 ml 900 ml Bladder Scan Volume Amount 999 ml # Bowel Movements 0 0 Result Diagram: 11/01/1731111/01/17311 Objective Remarks GENERAL: Patient sitting up in bed. Appears comfortable. Pleasant. SKIN: Warm and dry. HEAD: Normocephalic. EYES: No scleral icterus. No injection or drainage. NECK: Supple, trachea midline. No JVD. CARDIOVASCULAR: Regular rate and rhythm without murmurs, gallops, or rubs. RESPIRATORY: Breath sounds equal bilaterally. No accessory muscle use. GASTROINTESTINAL: Abdomen soft, non-tender, nondistended. MUSCULOSKELETAL: No cyanosis, or edema. BACK: Nontender without obvious deformity. No CVA tenderness. A/P Assessment and Plan //Polysubstance abuse on pseudoephedrine, Klonopin and Benadryl. //Intentional overdose = took 36 pseudoephedrine tablets and "a lot" of Benadryl -Continue treating tachycardia with diltiazem, urinary retention with Kellogg, constipation with laxatives. Continue IV fluids. //History of bipolar disorder. //History of anxiety and depression. = Psychiatry following. Appreciate assistance. //Urinary retention Bladder scan of 999 mL. Likely secondary to anticholinergic effects of Benadryl overdose. Place Kellogg today. May be voiding trials tomorrow. //Hypertension. Likely secondary to Sudafed overdose. Continue to monitor and treat as necessary. Discharge Planning Continues to require hospitalization due to side effects from drug overdose. Under Robbins act. will need psychiatry clearance Darrius Balbuena MD November 01, 2017 15:17
--- NOTE | 2017-11-01 19:14 | EKG ---
Date Performed: 10/31/2017 Time Performed: 18:18:47 PTAGE: 27 years EKG: SINUS TACHYCARDIA NONSPECIFIC T-WAVE ABNORMALITY ABNORMAL RHYTHM ECG Since the PREVIOUS TRACING , no significant change noted PREVIOUS TRACIN10/31/2017 07.56 DOCTOR: Norma Moore Interpretating Date/Time 11/01/2017 16:40:57
[2017-11-01] MEDS: DIVALPROEX SODIUM E.R. 500 MG TAB PO SCH (20:07)
[2017-11-01] MEDS: clonazePAM 0.5 MG TAB PO SCH (20:07)
[2017-11-01] MEDS: QUEtiapine FUMARATE 25 MG TAB PO SCH (20:07)
[2017-11-02] VITALS (20 sets, daily range): BP systolic 114–144; BP diastolic 64–80; PULSE 58–79; RESP 12–20; TEMP 98–99; O2SAT 96–98
[2017-11-02] MEDS: CHLORHEXIDINE GLUCONATE 2 % 1 PACK (2 CLOTHS) TOP SCH (04:00)
[2017-11-02] MEDS: DILTIAZEM HCL 30 MG TAB PO SCH ×3 (05:34→17:25)
--- NOTE | 2017-11-02 07:02 | HHI.PR ---
Subjective Remarks Patient seen and examined this morning. His vitals are stable he is afebrile. Father is at bedside. Cardizem drip is off. Patient saturating well on room air. Patient is eager to move on with his life, enroll in school, have outpatient rehabilitation. Reports having a supportive family. No complaints or concerns at this time. Objective Vital Signs Date Time Temp Pulse Resp B/P (MAP) Pulse Ox O2 Delivery O2 Flow Rate FiO2 11/02/17 06:00 73 11/02/17 04:00 99.0 65 12 138/67 (90) 98 11/02/17 04:00 65 11/02/17 02:00 69 11/02/17 00:00 77 11/02/17 00:00 98.7 77 14 128/70 (89) 96 11/01/17 22:00 68 11/01/17 20:00 91 11/01/17 20:00 99.3 91 21 139/73 (95) 96 11/01/17 18:00 80 11/01/17 16:00 98.9 87 15 136/74 (94) 94 11/01/17 16:00 87 11/01/17 14:00 103 11/01/17 12:00 102 11/01/17 12:00 98.8 102 23 138/88 (105) 97 11/01/17 10:00 105 11/01/17 08:00 99 11/01/17 08:00 99.0 99 11 135/76 (95) 98 I/O 11/01/17 11/01/17 11/01/17 11/02/17 11/02/17 11/02/17 07:00 15:00 23:00 07:00 15:00 23:00 Intake Total 240 ml 720 ml 300 ml Output Total 900 ml 2900 ml 750 ml Balance -660 ml -2180 ml -450 ml Intake Oral 240 ml 720 ml 300 ml Output Urine Total 900 ml 2900 ml 750 ml Bladder Scan Volume Amount 999 ml # Bowel Movements 0 0 0 Result Diagram: 11/01/172 11/01/17 0312 Imaging Last Impressions Chest X-Ray 10/31/17 1198 Signed Impressions: Service Date/Time: October 08:24 - CONCLUSION: No acute cardiopulmonary abnormality is identified. Chong Browne MD Objective Remarks GENERAL: Well-appearing, no acute distress SKIN: Warm and dry. HEAD: Normocephalic. EYES: No scleral icterus. No injection or drainage. NECK: Supple, trachea midline. No JVD or lymphadenopathy. CARDIOVASCULAR: Regular rate and rhythm without murmurs, gallops, or rubs. RESPIRATORY: Breath sounds equal bilaterally. No accessory muscle use. GASTROINTESTINAL: Abdomen soft, non-tender, nondistended. MUSCULOSKELETAL: No cyanosis, or edema. A/P Problem List: (1) Mood disorder ICD Code: F39 - Mood disorder Status: Acute (2) Suicide attempt ICD Code: T14.91 - Suicide attempt Status: Acute (3) Drug overdose, intentional ICD Code: T50.902A - Drug overdose, intentional Status: Acute (4) Bipolar disorder ICD Code: F31.9 - Bipolar disorder Status: Acute (5) Anxiety ICD Code: F41.9 - Anxiety disorder, unspecified Status: Acute Assessment and Plan In summary this is a 27-year-old male with medical history significant for bipolar disorder, anxiety and depression who presented to [place] ED with his parents after an intentional overdose. Apparently they had found a bottle of Benadryl, Klonopin, and pseudoephedrine. He was drowsy upon initial presentation. He was found to be significantly tachycardic and hypertensive. He was admitted to the ICU for close monitoring. Intentional overdose -Tachycardia has stabilized, now off Cardizem drip. -Patient under Robbins act. Psychiatry was consulted. Per their assessment was hemodynamically stable and not a danger patient will likely go to walk-in [facility] in [place] for inpatient psychiatric treatment. Per psychiatry patient must remain with a sitter on the floor. Bipolar, depression, anxiety -Home medications per psych Urinary retention -Voiding trials today Hypertension and tachycardia -Resolved Transfer out of ICU. Discharge Planning Medically stable Awaiting psych clearance Case management to assist with discharge planning. Problem Qualifiers (1) Drug overdose, intentional: Qualified Codes: T50.902A - Poisoning by unspecified drugs, medicaments and biological substances, intentional self-harm, initial encounter Idalia Calderón MD November 02, 2017 07:02
[2017-11-02] MEDS: FAMOTIDINE 20 MG/2 ML VIAL IV PUSH SCH ×2 (09:00→21:00)
[2017-11-02] MEDS: DIVALPROEX SODIUM E.R. 500 MG TAB PO SCH (09:38)
[2017-11-02] MEDS: DOCUSATE SODIUM 50 MG/SENNA 8.6 MG TAB PO SCH ×2 (09:38→21:12)
[2017-11-02] MEDS: clonazePAM 0.5 MG TAB PO SCH ×2 (09:38→21:10)
[2017-11-02] MEDS: FAMOTIDINE 20 MG TAB PO SCH ×2 (09:39→21:15)
[2017-11-02] MEDS: CITALOPRAM HYDROBROMIDE 20 MG TAB PO SCH (09:39)
[2017-11-02] MEDS: HEPARIN SODIUM - SQ 10,000 UNITS/ML VIAL SQ SCH ×2 (09:40→21:12)
[2017-11-02] MEDS: DEXT 5%-NACL 0.9% 1000 ML INJ 1,000 ML IV SCH ×2 (15:15→22:20)
[2017-11-02] MEDS: QUEtiapine FUMARATE 25 MG TAB PO SCH (21:10)
[2017-11-03] VITALS (16 sets, daily range): BP systolic 120–146; BP diastolic 68–99; PULSE 54–91; RESP 9–16; TEMP 97.8–98.5; O2SAT 95–98
[2017-11-03] MEDS: DEXT 5%-NACL 0.9% 1000 ML INJ 1,000 ML IV SCH (03:34)
[2017-11-03] MEDS: CHLORHEXIDINE GLUCONATE 2 % 1 PACK (2 CLOTHS) TOP SCH (03:35)
[2017-11-03] MEDS: DILTIAZEM HCL 30 MG TAB PO SCH ×2 (06:00)
--- NOTE | 2017-11-03 07:02 | HHI.PR ---
Subjective Remarks Patient seen and examined this morning. His vitals are stable he is afebrile. Mother is at bedside. Patient saturating well on room air. Patient is eager to move on with his life, enroll in school, have outpatient rehabilitation. Yesterday patient was unable to void on his own. Kellogg had to be reinserted. Has not yet had BM. Objective Vital Signs Date Time Temp Pulse Resp B/P (MAP) Pulse Ox O2 Delivery O2 Flow Rate FiO2 11/03/17 06:00 67 11/03/17 04:00 54 11/03/17 04:00 97.8 54 9 120/68 (85) 96 11/03/17 02:00 62 11/03/17 00:00 97.9 69 11 130/75 (93) 95 11/03/17 00:00 69 11/02/17 22:00 58 11/02/17 20:00 98.4 78 15 144/73 (96) 98 11/02/17 20:00 78 11/02/17 18:00 79 11/02/17 17:01 73 11/02/17 17:00 75 11/02/17 16:00 73 11/02/17 16:00 98.7 73 17 135/72 (93) 96 11/02/17 15:00 73 11/02/17 14:00 68 11/02/17 13:00 79 11/02/17 12:00 98.3 71 12 121/80 (94) 97 11/02/17 12:00 71 11/02/17 11:00 64 11/02/17 10:00 73 11/02/17 09:00 65 11/02/17 08:00 73 11/02/17 08:00 98.0 73 20 114/64 (81) 98 11/02/17 07:50 98 21 I/O 11/02/17 11/02/17 11/02/17 11/03/17 11/03/17 11/03/17 07:00 15:00 23:00 07:00 15:00 23:00 Intake Total 300 ml 1900 ml Output Total 750 ml 2900 ml Balance -450 ml -1000 ml Intake Oral 300 ml 900 ml IV Total 1000 ml Output Urine Total 750 ml 2900 ml Bladder Scan Volume Amount 350 ml # Bowel Movements 0 Result Diagram: 11/01/17 0312 11/01/17 0312 Objective Remarks GENERAL: Well-appearing, no acute distress SKIN: Warm and dry. HEAD: Normocephalic. EYES: No scleral icterus. No injection or drainage. NECK: Supple, trachea midline. No JVD or lymphadenopathy. CARDIOVASCULAR: Regular rate and rhythm without murmurs, gallops, or rubs. RESPIRATORY: Breath sounds equal bilaterally. No accessory muscle use. GASTROINTESTINAL: Abdomen soft, non-tender, nondistended. MUSCULOSKELETAL: No cyanosis, or edema. A/P Problem List: (1) Mood disorder ICD Code: F39 - Mood disorder Status: Acute (2) Suicide attempt ICD Code: T14.91 - Suicide attempt Status: Acute (3) Drug overdose, intentional ICD Code: T50.902A - Drug overdose, intentional Status: Acute (4) Bipolar disorder ICD Code: F31.9 - Bipolar disorder Status: Acute (5) Anxiety ICD Code: F41.9 - Anxiety disorder, unspecified Status: Acute Assessment and Plan In summary this is a 27-year-old male with medical history significant for bipolar disorder, anxiety and depression who presented to [place] ED with his parents after an intentional overdose. Apparently they had found a bottle of Benadryl, Klonopin, and pseudoephedrine. He was drowsy upon initial presentation. He was found to be significantly tachycardic and hypertensive. He was admitted to the ICU for close monitoring. Intentional overdose -Tachycardia has resolved -Patient under Robbins act. Psychiatry was consulted. Per their assessment was hemodynamically stable and not a danger patient will likely go to walk-in [facility] in [place] for inpatient psychiatric treatment. Per psychiatry patient must remain with a sitter on the floor. Bipolar, depression, anxiety -Home medications per psych Urinary retention -Voiding trials today -We will see how patient does today, continues to have difficulties voiding will have to reach out to urology. Hypertension and tachycardia -Resolved Transfer out of ICU. Discharge Planning Voiding trials today, once patient able to void on his own may dc per psych reccs Encourage out of bed May transfer out of ICU Case management to assist with discharge planning. Problem Qualifiers (1) Drug overdose, intentional: Qualified Codes: T50.902A - Poisoning by unspecified drugs, medicaments and biological substances, intentional self-harm, initial encounter Idalia Calderón MD November 03, 2017 07:02
[2017-11-03] MEDS: CITALOPRAM HYDROBROMIDE 20 MG TAB PO SCH (08:58)
[2017-11-03] MEDS: FAMOTIDINE 20 MG TAB PO SCH ×2 (08:58→23:53)
[2017-11-03] MEDS: FAMOTIDINE 20 MG/2 ML VIAL IV PUSH SCH ×2 (08:58→21:00)
[2017-11-03] MEDS: DIVALPROEX SODIUM E.R. 500 MG TAB PO SCH (08:58)
[2017-11-03] MEDS: HEPARIN SODIUM - SQ 10,000 UNITS/ML VIAL SQ SCH ×2 (08:58→23:54)
[2017-11-03] MEDS: clonazePAM 0.5 MG TAB PO SCH ×2 (08:58→23:54)
[2017-11-03] MEDS: DOCUSATE SODIUM 50 MG/SENNA 8.6 MG TAB PO SCH ×2 (08:58→23:53)
[2017-11-03] MEDS: QUEtiapine FUMARATE 25 MG TAB PO SCH (23:53)
[2017-11-04] VITALS: BP 128/65; PULSE 68; RESP 17; TEMP 97.6; O2SAT 96
[2017-11-04 04:00] VITALS: BP 100/55; PULSE 85; RESP 17; TEMP 99.4; O2SAT 100
[2017-11-04] MEDS: CHLORHEXIDINE GLUCONATE 2 % 1 PACK (2 CLOTHS) TOP SCH (04:00)
[2017-11-04 08:00] VITALS: BP 129/65; PULSE 79; RESP 17; TEMP 98.2; O2SAT 99
[2017-11-04] MEDS: FAMOTIDINE 20 MG/2 ML VIAL IV PUSH SCH (09:00)
[2017-11-04] MEDS: FAMOTIDINE 20 MG TAB PO SCH (09:16)
[2017-11-04] MEDS: clonazePAM 0.5 MG TAB PO SCH (09:16)
[2017-11-04] MEDS: DOCUSATE SODIUM 50 MG/SENNA 8.6 MG TAB PO SCH (09:16)
[2017-11-04] MEDS: CITALOPRAM HYDROBROMIDE 20 MG TAB PO SCH (09:16)
[2017-11-04] MEDS: HEPARIN SODIUM - SQ 10,000 UNITS/ML VIAL SQ SCH (09:17)
[2017-11-04] MEDS: DIVALPROEX SODIUM E.R. 500 MG TAB PO SCH (09:33)
--- NOTE | 2017-11-04 11:08 | HHI.PR ---
Subjective Remarks patient is very cooperative, has a very supportive mother at bedside ff up with Gerri Stuart as OP and states she is set to take him there today denies any suicidal ideations no history of urinary symptoms of hesitancy or urgency in the past good po very interactive Objective Vitals Vital Signs Date Time Temp Pulse Resp B/P (MAP) Pulse Ox O2 Delivery O2 Flow Rate FiO2 11/04/17 08:00 98.2 79 17 129/65 (86) 99 11/04/17 04:00 99.4 85 17 100/55 (70) 100 11/04/17 00:00 97.6 68 17 128/65 (86) 96 11/03/17 20:00 98.0 81 15 146/99 (115) 96 11/03/17 20:00 74 11/03/17 18:00 91 11/03/17 16:00 84 11/03/17 16:00 98.2 84 14 135/85 (102) 98 11/03/17 15:00 83 11/03/17 14:00 81 11/03/17 12:00 98.5 70 15 122/74 (90) 98 11/03/17 12:00 70 I/O 11/03/17 11/03/17 11/03/17 11/04/17 11/04/17 11/04/17 07:00 15:00 23:00 07:00 15:00 23:00 Intake Total 1000 ml 450 ml 900 ml 240 ml Output Total 1250 ml 2200 ml Balance -250 ml 450 ml -1300 ml 240 ml Intake Oral 900 ml 240 ml IV Total 1000 ml 450 ml Output Urine Total 1250 ml 2200 ml Bladder Scan Volume Amount 350 ml # Voids 2 # Bowel Movements 0 1 Result Diagram: 11/01/17 0312 11/01/17 0312 Imaging Last Impressions Chest X-Ray 10/31/17 [id number] Signed Impressions: Service Date/Time: October 08:24 - CONCLUSION: No acute cardiopulmonary abnormality is identified. Chong Browne MD Objective Remarks awake and alert, oriented x 2, interactive and apprpriate anicteric no nuchal rigidity lungs- clear regular rhythm abdomen soft, nontender extremities no edema clark in place- no scrotal swelling neuro exam non focal Assessment to: Remove Date of Removal: November 04, 2017 A/P Assessment and Plan In summary this is a 27-year-old male with medical history significant for bipolar disorder, anxiety and depression who presented to [place] ED with his parents after an intentional overdose. Apparently they had found a bottle of Benadryl, Klonopin, and pseudoephedrine. He was drowsy upon initial presentation. He was found to be significantly tachycardic and hypertensive. He was admitted to the ICU for close monitoring. Intentional overdose - now on exam- shows good insight - supportive parent -Patient under Robbins act. - will ff up with his psychiatrist - Dr. Talley - going straight there once DC Bipolar, depression, anxiety -Home medications per psych - OP ff up with dr. Talley Acute Urinary retention -DC clark today- check voiding - Hypertension and tachycardia -Resolved Transfer out of ICU. Discharge Planning Voiding trials today, once patient able to void on his own may dc per psych reccs Encourage out of bed May transfer out of ICU Case management to assist with discharge planning. Cass Alonso MD November 04, 2017 11:08
--- NOTE | 2017-11-04 11:22 | HHI.DS ---
Discharge Summary Admission Date October 31, 2017 at 10:37 Discharge Date: November 04, 2017 Admitting Diagnosis Intentional drug overdose, Sudafed/Benadryl overdose, tachycardia CBC/BMP: 11/01/17 0312 11/01/17 0312 PE at Discharge awake and alert, oriented x 2, interactive and apprpriate anicteric no nuchal rigidity lungs- clear regular rhythm abdomen soft, nontender extremities no edema clark in place- no scrotal swelling neuro exam non focal Pt update on day of discharge awake and alert, cooperative supportive parent at bedside going straight to Dr. Talley's office from here on DC Pt Condition on Discharge: Stable Discharge Disposition: Discharge Home Discharge Time: <= 30 minutes Discharge Instructions DIET: Follow Instructions for: As Tolerated, No Restrictions Speech Therapy-Diet Recommends: Regular Activities you can perform: Weight Bearing as Dolores Follow up Referrals: Psychiatry Adult - Today with Joe Talley M.d. Continued Medications: Citalopram (Celexa) 20 Mg Tab 20 MG PO DAILY for Control Depression, #30 TAB 0 Refills Clonazepam (Clonazepam) 0.5 Mg Tab 0.5 MG PO BID, TAB 0 Refills Divalproex ER (Depakote ER) 500 Mg Alexus 500 MG PO DAILY for Control Seizures, #30 TAB 0 Refills Quetiapine (Quetiapine) 25 Mg Tab 25 MG PO HS, TAB 0 Refills Cass Alonso MD November 04, 2017 11:22
[2017-11-04 12:00] VITALS: BP 137/80; PULSE 79; RESP 18; TEMP 97.8; O2SAT 97
--- NOTE | 2017-11-04 13:54 | HHI.PYPN ---
Subjective Remarks The patient was seen today for psychiatric reevaluation. His mother was present during the interview. The patient reports feeling much better, he says that he is a good mood. The patient was able to talk about his recent suicide attempt, he says it was a very important and irrational action. He is very happy to be alive. The patient reports that he is motivated to continue medications and outpatient psychiatric care. He denies depression, denies anxiety, denies jose and psychosis. He denies suicidal and homicidal ideation , he denies visual and auditory hallucinations. He is oriented 3. Review of Systems Except as stated in HPI: all other systems reviewed are Neg Mental Status Examination Appearance: Appropriate, Disheveled Consciousness: Alert, Obtunded, Clouded Orientation: x4 Motor Activity: Abnormal gait Speech: Incoherent Fund of Knowledge: Inadequate Memory: Unremarkable Mood: Appropriate, Irritable Affect: Appropriate Thought Process & Associations: Intact Thought Content: Appropriate Hallucination Type: None Suicidal Ideation: No Suicidal Plan: No Suicidal Intention: No Homicidal Ideation: No Homicidal Plan: No Homicidal Intention: No Insight: Fair Judgment: Impulsive Results Vitals/IOs Vital Signs Date Time Temp Pulse Resp B/P (MAP) Pulse Ox O2 Delivery O2 Flow Rate FiO2 11/04/17 12:00 97.8 79 18 137/80 (99) 97 11/03/17 07:50 21 10/31/17 11:28 Room Air Intake and Output 11/04/17 11/04/17 11/05/17 08:00 16:00 00:00 Intake Total 240 ml Balance 240 ml Assessment & Plan Problem List: (1) Bipolar disorder ICD Codes: F31.9 - Bipolar disorder Status: Acute Assessment & Plan: The patient does not present any neuropsychiatric symptoms that require immediate psychiatric intervention. He denies suicidal enemas ideation, he denies visual and auditory hallucinations. Robbins act is to be lifted. Patient will follow up with Dr. Talley in outpatient basis. Continue current psychotropics. Mother agrees with plan. Assessment & Plan Estimated LOS: days Justification for Cont. Inpt. No admission indicated Paramjit Mahajan MD November 04, 2017 13:54
== END 2017-11-04 15:41 | disposition home or self-care (01) | DRG 918 ==
LOC: NEPE 07:27 → NEDA 10:37 → HIME 13:15 → N07A 11-03 20:54
PROVIDERS: ADMIT Internal Medicine; ATTEND Internal Medicine
PROC: 0T9B70Z Drainage of Bladder with Drainage Device, Via Natural or Artificial Opening (ICD-10-PCS; principal; 2017-11-01)
DX: T50.902A Poisoning by unspecified drugs, medicaments and biological substances, intentional self-harm, initial encounter (principal); F31.9 Bipolar disorder, unspecified; I10 Essential (primary) hypertension; F39 Unspecified mood [affective] disorder; F41.9 Anxiety disorder, unspecified; R41.82 Altered mental status, unspecified; R00.0 Tachycardia, unspecified; R44.1 Visual hallucinations; K59.00 Constipation, unspecified; R33.9 Retention of urine, unspecified; F17.210 Nicotine dependence, cigarettes, uncomplicated; F19.10 Other psychoactive substance abuse, uncomplicated; Z91.5 Personal history of self-harm; Z79.899 Other long term (current) drug therapy
CPT/HCPCS: 71045; 80053; 80074; 80307; 81001; 83735; 84100; 85025; 85610; 85730; 87641; 93005; 96360; J0360; J1644; J7030; J7042